=== PATIENT | female | born 1965 | race Two or more races ===

== ENCOUNTER 2019-08-09 08:06 | Outpatient (CLI) | payer OTHER ==
[2019-08-09 09:08] LABS: *BILIRUBIN,URIN NEGATIVE (NEGATIVE); *BLOOD, URINE NEGATIVE (NEGATIVE); *CLARITY,URINE SLIGHTLY CLOUDY (CLEAR); *COLOR,URINE LIGHT YELLOW (YELLOW); *KETONES,URINE NEGATIVE (NEGATIVE); *UROBILINOGEN,URINE 0.2 E.U./dl (NORMAL); LEUKOCYTE ESTERASE ,URINE 2+ (NEGATIVE); NITRITE, URINE NEGATIVE (NEGATIVE); UGLUCOSE NEGATIVE (NEGATIVE)
[2019-08-09 09:12] LABS: BASOPHILS % (AUTO) 0.5 % (0.0-2.0); EOSINOPHILS # (AUTO) 0.2 K/uL (0.0-0.7); EOSINOPHILS % (AUTO) 2.3 % (0.0-7.0); HEMATOCRIT 36.6 % (31.2-41.9); HEMOGLOBIN 12.3 g/dL (10.9-14.3); LYMPHOCYTES # (AUTO) 2.5 K/uL (20.0-40.0); LYMPHOCYTES % (AUTO) 28.7 % (20.5-51.5); MEAN CORPUSCULAR HEMOGLOBIN 27.9 uug (24.7-32.8); MEAN CORPUSCULAR HGB CONC 34 g/dL (32.3-35.6); MEAN CORPUSCULAR VOLUME 83.2 fL (75.5-95.3); MONOCYTES # (AUTO) 0.6 K/uL (2.0-10.0); MONOCYTES % (AUTO) 7.2 % (0.0-11.0); NEUTROPHILS # (AUTO) 5.4 K/uL (1.8-8.9); NEUTROPHILS % (AUTO) 61.3 % (38.5-71.5); PLATELET COUNT (AUTO) 219 K/uL (179-408); RED BLOOD CELL COUNT(AUTO) 4.39 MIL/uL (3.63-4.92); WHITE BLOOD COUNT (AUTO) 8.8 K/uL (3.8-11.8)
[2019-08-09 09:13] LABS: CREATININE 0.9 mg/dL (0.6-1.3); POTASSIUM 4.4 mmol/L (3.5-5.1)
[2019-08-09 09:19] LABS: BILIRUBIN,TOTAL 0.5 mg/dL (0.2-1.0); TOTAL PROTEIN, SERUM 7.4 g/dL (6.4-8.2)
[2019-08-09 09:27] LABS: BACTERIA,URINE MANY /HPF (NONE SEEN); SQUAMOUS EPITHELIAL CELL,UR FEW /HPF (NONE SEEN)
[2019-08-09 09:28] LABS: WBC,URINE 50-80 /HPF (0-3)
== END 2019-08-09 23:59 | disposition home or self-care (01) ==
LOC: EDBD 08:06 → LAB 08:06
PROVIDERS: ATTEND Internal Medicine
DX: Z01.818 Encounter for other preprocedural examination (principal); S52.591P Other fractures of lower end of right radius, subsequent encounter for closed fracture with malunion; X58.XXXD Exposure to other specified factors, subsequent encounter
CPT/HCPCS: 36415; 71045; 85025; 85730; 87077; 87086; A4663

== ENCOUNTER 2019-08-12 06:12 | Day surgery (SDC) | payer OTHER ==
[2019-08-12] MEDS ORDERED: [UNRECOGNIZED DRUG - OTHER] IH ONE (06:13)
[2019-08-12] MEDS ORDERED: CEFAZOLIN 1 G VIAL IM ONE (06:13)
[2019-08-12] MEDS ORDERED: SEVOFLURANE 250 ML BOTTLE IH ONE (06:13)
[2019-08-12] MEDS ORDERED: PROPOFOL 200 MG/20 ML BOTTLE IV ONE (06:13)
[2019-08-12] MEDS ORDERED: MIDAZOLAM HCL 2 MG/2 ML VIAL ONE (08:00)
[2019-08-12] MEDS ORDERED: FENTANYL CITRATE 100 MCG/2 ML AMPUL ONE (08:01)
[2019-08-12] MEDS ORDERED: POLYMYXIN B SULFATE 500,000 UNITS, BACITRACIN 50,000 UNITS, NORMAL SALINE 20 ML MC ONE ×3 (08:15)
[2019-08-12] MEDS ORDERED: BUPIVACAINE PF 0.5% 30 ML VIAL ONE (08:37)
[2019-08-12] MEDS ORDERED: TRAMADOL HCL 50 MG TABLET ONE (09:53)
== END 2019-08-12 10:55 | disposition home or self-care (01) ==
LOC: EDBD → DS 06:12
PROVIDERS: ATTEND Orthopaedic Surgery
DX: S52.591P Other fractures of lower end of right radius, subsequent encounter for closed fracture with malunion (principal); I10 Essential (primary) hypertension; E11.9 Type 2 diabetes mellitus without complications; N39.0 Urinary tract infection, site not specified; Z90.710 Acquired absence of both cervix and uterus; X58.XXXD Exposure to other specified factors, subsequent encounter
CPT/HCPCS: 25101; 82962; J0690; J2250; J3010; J3490 ×3; A4649; J3590; J7030